=== PATIENT | male | born 2000 | race Caucasian/White ===

== ENCOUNTER 2020-07-01 08:10 | Emergency (ER) | payer OTHER ==
[~2020-07-01] VITALS: Ht 175.3 cm; Wt 73.8 kg
[2020-07-01 08:11] VITALS: BP 116/58
[2020-07-01] MEDS ORDERED: AMOX500C PO (08:56)
== END 2020-07-01 09:01 | disposition home or self-care (01) ==
LOC: M ED 08:10
DX: J02.0 Streptococcal pharyngitis (principal); F17.210 Nicotine dependence, cigarettes, uncomplicated